=== PATIENT | male | born 1985 | race Caucasian/White ===

== ENCOUNTER 2022-08-30 11:35 | Emergency (ER) | payer SELFPAY ==
[~2022-08-30] VITALS: Ht 172 cm; Wt 75.0 kg
[2022-08-30] MEDS ORDERED: NS IV 1000 ML 1,000 ML IV STA (12:28)
[2022-08-30 12:30] LABS: BILIRUBIN,URINE NEGATIVE (NEGATIVE); CLARITY,URINE CLOUDY; COLOR,URINE YELLOW; GLUCOSE, URINE (UA) NEGATIVE (NEGATIVE); KETONES,URINE TRACE (NEGATIVE); LEUKOCYTE ESTERASE ,URINE NEGATIVE (NEGATIVE); NITRITE,URINE NEGATIVE (NEGATIVE); PH,URINE 8.5 (5-9); PROTEIN,URINE NEGATIVE (NEGATIVE)
--- NOTE | 2022-08-30 12:37 | ED General ---
General Chief Complaint: General Problems/Pain Stated Complaint: KIDNEY PAIN Nursing Triage Note: Patient ambulatory to ER w c/o of lower left back pain radiates into the groin. Patient states the pain started 2 hrs ago. Patient took nothing for the pain. Source of Information: Patient Exam Limitations: No Limitations History of Present Illness Date Seen by Provider: Aug 30, 2022 Time Seen by Provider: 12:35 Initial Comments Patient is a 37-year-old male who presents ED with cute onset of the left flank pain. Started around 8 AM. Pain radiates into the left lower quadrant and left groin. Described as sharp and rates pain 8 out of 10. Denies taking thing for pain or history of similar symptoms. Reports nausea without vomiting or diarrhea. Denies fever, chest pain, cough, shortness of breath, visual changes. Denies taking thing for pain. Denies dysuria, hematuria, increased urine frequency. No history of previous abdominal surgery. Allergies and Home Medications Allergies Coded Allergies: No Known Drug Allergies (Unverified , 08/30/22) Patient Home Medication List Home Medication List Reviewed: Yes Hydrocodone/Acetaminophen (Hydrocodone-Acetamin 5-325 mg) 5 Mg-325 Mg Tablet, 1 TAB PO Q4H PRN for PAIN-MODERATE (5-7) Prescribed by: CHEYANNE WRIGHT on 08/30/22 1349 Ondansetron (Ondansetron Odt) 4 Mg Tab.rapdis, 4 MG SL Q4H PRN for NAUSEA/VOMITING Prescribed by: CHEYANNE WRIGHT on 08/30/22 134 Tamsulosin HCl (Flomax) 0.4 Mg Cap, 0.4 MG PO DAILY Prescribed by: CHEYANNE WRIGHT on 08/30/22 1349 Review of Systems Review of Systems Constitutional: No chills, No diaphoresis, No malaise, No weakness EENTM: No hearing loss, No blurred vision, No mouth pain, No mouth swelling, No throat pain, No throat swelling Respiratory: No cough, No dyspnea on exertion Cardiovascular: No chest pain Gastrointestinal: abdominal pain; No diarrhea; nausea; No vomiting Genitourinary: No decreased output, No discharge, No frequency, No hematuria Musculoskeletal: back pain; No joint pain Skin: No change in color, No change in hair/nails All Other Systems Reviewed Negative Unless Noted: Yes Past Bwjfofj-Preoal-Eqozin Hx Patient Social History Tobacco Use?: Yes Tobacco type used: Cigarettes Smoking Status: Current Everyday Smoker Substance use?: No Alcohol Use?: Yes Alcohol Frequency: Daily Immunizations Up To Date COVID19 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 oz. kg; 25.00 BMI Method: General Appearance: No Apparent Distress, WD/WN Eyes: Bilateral Eye Normal Inspection, Bilateral Eye PERRL, Bilateral Eye Abnormal EOM HEENT: PERRL/EOMI, TMs Normal, Normal ENT Inspection, Pharynx Normal Neck: Full Range of Motion, Normal Inspection, Non Tender, Supple Respiratory: Chest Non Tender, Lungs Clear, Normal Breath Sounds, No Accessory Muscle Use, No Respiratory Distress Cardiovascular: Regular Rate, Rhythm, No Edema, No Gallop, No JVD, No Murmur Gastrointestinal: Normal Bowel Sounds, No Organomegaly, No Pulsatile Mass, Tenderness (Left flank tenderness., Left lower quadrant tenderness) Extremity: Normal Capillary Refill, Normal Inspection, Normal Range of Motion, Non Tender Neurologic/Psychiatric: Alert, Oriented x3, No Motor/Sensory Deficits Progress/Results/Core Measures Suspected Sepsis SIRS Temperature: Pulse: 69 Respiratory Rate: 20 Laboratory Tests 08/30/22 12:42: White Blood Count 15.5H Blood Pressure 155 /91 Mean: 112 Laboratory Tests 08/30/22 12:42: Creatinine 1.18, Platelet Count 292, Total Bilirubin 0.6 Results/Orders Lab Results Laboratory Tests Test 08/30/22 12:24 08/30/22 12:42 Range/Units Urine Color YELLOW Urine Clarity CLOUDY Urine pH 8.5 5-9 Urine Specific Hodgen 1.015 L 1.016-1.022 Urine Protein NEGATIVE NEGATIVE Urine Glucose (UA) NEGATIVE NEGATIVE Urine Ketones TRACE H NEGATIVE Urine Nitrite NEGATIVE NEGATIVE Urine Bilirubin NEGATIVE NEGATIVE Urine Urobilinogen 0.2 < = 1.0 MG/DL Urine Leukocyte Esterase NEGATIVE NEGATIVE Urine RBC (Auto) NEGATIVE NEGATIVE Urine RBC NONE /HPF Urine WBC NONE /HPF Urine Crystals NONE /LPF Urine Amorphous Sediment MOD ELAINE PHOSPHATE H /LPF Urine Bacteria NEGATIVE /HPF Urine Casts NONE /LPF Urine Mucus NEGATIVE /LPF Urine Culture Indicated NO White Blood Count 15.5 H 4.3-11.0 10^3/uL Red Blood Count 4.71 4.30-5.52 10^6/uL Hemoglobin 14.2 13.3-17.7 g/dL Hematocrit 41 40-54 % Mean Corpuscular Volume 87 80-99 fL Mean Corpuscular Hemoglobin 30 25-34 pg Mean Corpuscular Hemoglobin Concent 35 32-36 g/dL Red Cell Distribution Width 12.4 10.0-14.5 % Platelet Count 292 130-400 10^3/uL Mean Platelet Volume 10.3 9.0-12.2 fL Immature Granulocyte % (Auto) 1 % Neutrophils (%) (Auto) 83 H 42-75 % Lymphocytes (%) (Auto) 8 L 12-44 % Monocytes (%) (Auto) 8 0-12 % Eosinophils (%) (Auto) 0 0-10 % Basophils (%) (Auto) 1 0-10 % Neutrophils # (Auto) 12.9 H 1.8-7.8 10^3/uL Lymphocytes # (Auto) 1.2 1.0-4.0 10^3/uL Monocytes # (Auto) 1.3 H 0.0-1.0 10^3/uL Eosinophils # (Auto) 0.0 0.0-0.3 10^3/uL Basophils # (Auto) 0.1 0.0-0.1 10^3/uL Immature Granulocyte # (Auto) 0.1 0.0-0.1 10^3/uL Neutrophils % (Manual) 77 % Lymphocytes % (Manual) 12 % Monocytes % (Manual) 11 % Blood Morphology Comment NORMAL Sodium Level 137 135-145 MMOL/L Potassium Level 3.7 3.6-5.0 MMOL/L Chloride Level 102 98-107 MMOL/L Carbon Dioxide Level 22 21-32 MMOL/L Anion Gap 13 5-14 MMOL/L Blood Urea Nitrogen 16 7-18 MG/DL Creatinine 1.18 0.60-1.30 MG/DL Estimat Glomerular Filtration Rate 81 BUN/Creatinine Ratio 14 Glucose Level 134 H 70-105 MG/DL Calcium Level 10.7 H 8.5-10.1 MG/DL Corrected Calcium 10.3 H 8.5-10.1 MG/DL Total Bilirubin 0.6 0.1-1.0 MG/DL Aspartate Amino Transf (AST/SGOT) 29 5-34 U/L Alanine Aminotransferase (ALT/SGPT) 30 0-55 U/L Alkaline Phosphatase 81 40-136 U/L Total Protein 7.6 6.4-8.2 GM/DL Albumin 4.5 3.2-4.5 GM/DL Lipase 10 8-78 U/L My Orders Orders - AZAEL RAMESH Urinalysis (08/30/22 12:08) Cbc With Automated Diff (08/30/22 12:28) Comprehensive Metabolic Panel (08/30/22 12:28) Lipase (08/30/22 12:28) Ns Iv 1000 Ml (Sodium Chloride 0.9%) (08/30/22 12:28) Ketorolac Injection (Toradol Injection) (08/30/22 12:45) Ct Abd/Pelvis Wo(Kidney Stone) (08/30/22 12:35) Manual Differential (08/30/22 12:42) Medications Given in ED Current Medications Medications Dose Ordered Sig/Peggy Route Start Time Stop Time Status Last Admin Dose Admin Ketorolac Tromethamine 30 mg ONCE ONCE IVP 08/30/22 12:45 08/30/22 12:46 DC 08/30/22 12:43 30 MG Vital Signs/I&O 08/30/22 08/30/22 11:39 14:00 Pulse 69 98 Resp 20 20 B/P (MAP) 155/91 (112) 141/102 Pulse Ox 100 97 O2 Delivery Room Air Room Air Capillary Refill : Less Than 3 Seconds Blood Pressure Mean: 112 Departure Communication (PCP) Patient with acute onset of left flank pain with radiation to left groin. No history of kidney stones. Denies history of abdominal surgery. Due to current complaints CBC, CMP, lipase CT abdomen pelvis was ordered concerning for nephrolithiasis versus UTI versus ureterolithiasis, diverticulitis. CBC showed white blood count of 15. CMP noted normal kidney function liver function. Urinalysis was negative for infection or hematuria. CT abdomen pelvis without contrast showed multiple bilateral intrarenal calculi. Left side noted perinephric edema and hydronephrosis and hydroureter down to the level of a tiny 1 mm stone which appears to be either at the UVJ or slightly into the bladder. Patient was given Toradol with significant improvement of symptoms. Was given IV fluid. Pain-free at this time. Provided urology outpatient follow-up with Flomax, pain medication and Zofran. Discussed oral hydration. If any worsening pain, decreased urine output, passing of blood clots to return back to ED Impression Primary Impression: Nephrolithiasis Disposition: HOME, SELF-CARE Condition: Stable Departure-Patient Inst. Decision time for Depature: 13:48 Referrals: [facility] [place] [facility],LOCAL PHYSICIAN (PCP) Primary Care Physician Patient Instructions: Kidney Stone, Adult ED Add. Discharge Instructions: Recommend follow-up your primary care physician. If continue having pain return back to ED. Recommend following up with [facility]. [phone] All discharge instructions reviewed with patient and/or family. Voiced understanding. Scripts Ondansetron (Ondansetron Odt) 4 Mg Tab.rapdis 4 MG SL Q4H PRN for NAUSEA/VOMITING, #6 TAB Prov: AZAEL RAMESH 08/30/22 Hydrocodone/Acetaminophen (Hydrocodone-Acetamin 5-325 mg) 5 Mg-325 Mg Tablet 1 TAB PO Q4H PRN for PAIN-MODERATE (5-7), #8 TAB Prov: AZAEL RAMESH 08/30/22 Tamsulosin HCl (Flomax) 0.4 Mg Cap 0.4 MG PO DAILY for 14 Days, #14 CAP Prov: AZAEL RAMESH 08/30/22 AZAEL RAMESH Aug 30, 2022 12:37
[2022-08-30 12:38] LABS: BACTERIA,URINE NEGATIVE /HPF
[2022-08-30 12:39] LABS: AMORPHOUS SEDIMENT,UR MOD AMOR PHOSPHATE /LPF
[2022-08-30] MEDS ORDERED: KETOROLAC 30 MG/ML VIAL IVP ONE (12:45)
[2022-08-30 12:52] LABS: BASOPHILS # (AUTO) 0.1 10^3/uL (0.0-0.1); BASOPHILS % (AUTO) 1 % (0-10); EOSINOPHILS % (AUTO) 0 % (0-10); HEMATOCRIT 41 % (40-54); HEMOGLOBIN 14.2 g/dL (13.3-17.7); LYMPHOCYTES # (AUTO) 1.2 10^3/uL (1.0-4.0); LYMPHOCYTES % (AUTO) 8 % (12-44); MEAN CORPUSCULAR HEMOGLOBIN 30 pg (25-34); MEAN CORPUSCULAR HGB CONC 35 g/dL (32-36); MEAN CORPUSCULAR VOLUME 87 fL (80-99); MEAN PLATELET VOLUME 10.3 fL (9.0-12.2); MONOCYTES # (AUTO) 1.3 10^3/uL (0.0-1.0); MONOCYTES % (AUTO) 8 % (0-12); NEUTROPHILS # (AUTO) 12.9 10^3/uL (1.8-7.8); NEUTROPHILS % (AUTO) 83 % (42-75); PLATELET COUNT 292 10^3/uL (130-400); WHITE BLOOD COUNT 15.5 10^3/uL (4.3-11.0)
[2022-08-30 13:01] LABS: ALBUMIN 4.5 GM/DL (3.2-4.5)
[2022-08-30 13:02] LABS: POTASSIUM 3.7 MMOL/L (3.6-5.0)
[2022-08-30 13:03] LABS: CALCIUM 10.7 MG/DL (8.5-10.1)
[2022-08-30 13:04] LABS: TOTAL PROTEIN 7.6 GM/DL (6.4-8.2)
[2022-08-30 13:06] LABS: BILIRUBIN,TOTAL 0.6 MG/DL (0.1-1.0)
[2022-08-30 13:08] LABS: CREATININE SERUM 1.18 MG/DL (0.60-1.30)
[2022-08-30 13:09] LABS: LYMPHOCYTES % (MANUAL) 12 %; MONOCYTES % (MANUAL) 11 %; NEUTROPHILS % (MANUAL) 77 %; RBC MORPH NORMAL
--- NOTE | 2022-08-30 13:31 | Diagnostic Imaging Report ---
INDICATION: Left sided abdominal pain. TECHNIQUE: Multiple contiguous axial images were obtained through the abdomen and pelvis without the use of intravenous contrast. Auto Exposure Controls were utilized during the CT exam to meet ALARA standards for radiation dose reduction. COMPARISON: There is no prior CT for comparison. FINDINGS: The visualized portions of the lung bases are clear. There were no pleural fluid collections. There is no free intraperitoneal air. The liver and gallbladder are normal. Spleen, adrenals, and pancreas appear normal. There is a moderate-sized hiatal hernia. On the right side, there are multiple intrarenal calculi with no hydronephrosis or hydroureter. On the left side, there is perinephric edema. There are multiple intrarenal calculi. There is left hydronephrosis and hydroureter, down to the level of a tiny stone at the UVJ measuring about 1 mm. There is no retroperitoneal mass or adenopathy. There is no ascites or abnormal fluid collection. Visualized bowel loops are unremarkable. Appendix appears normal. IMPRESSION: There are multiple bilateral intrarenal calculi. On the left side, there is perinephric edema with hydronephrosis and hydroureter, down to the level of a tiny 1 mm stone, this appears to be either just at the UVJ or slightly into the bladder, correlate with symptoms. There is no other significant finding. Dictated by: Dictated on workstation # [id number]
[2022-08-30] MEDS ORDERED: ACHD5005 PO (13:49)
[2022-08-30] MEDS ORDERED: ONDA4TAB11 SL (13:49)
[2022-08-30] MEDS ORDERED: TMSL.4C PO (13:49)
[2022-08-30 14:00] VITALS: BP 141/102
== END 2022-08-30 14:01 | disposition home or self-care (01) ==
LOC: EDUNIT# 11:35 → ER 11:38
DX: N13.2 Hydronephrosis with renal and ureteral calculous obstruction (principal); F17.210 Nicotine dependence, cigarettes, uncomplicated
CPT/HCPCS: 36415; 74176; 80053; 81000; 83690; 85007; 85027